=== PATIENT | female | born 1945 | race Two or more races ===

== ENCOUNTER 2020-01-07 01:50 | Outpatient (CLI) | payer MEDICARE, SELFPAY ==
[2020-01-07 18:31] LABS: SARS-CoV-2 RNA PCR Negative
== END 2020-01-07 01:51 | disposition home or self-care (01) ==
LOC: ANHCOVIDDT 01:51
PROVIDERS: PCP Internal Medicine; Visit Provider Internal Medicine Gastroenterology
DX: Z01.812 Encounter for preprocedural laboratory examination (principal); Z20.828 Contact with and (suspected) exposure to other viral communicable diseases
CPT/HCPCS: 87635; C9803; U0003

== ENCOUNTER 2020-01-10 00:37 | Day surgery (SDC) | payer MEDICARE, SELFPAY ==
[2020-01-02 10:13] VITALS: BMI 21.9
[2020-01-10 08:17] VITALS: BP 120/78; PULSE 75; RESP 16; TEMP 36.6; O2SAT 98; BMI 21.3
--- NOTE | 2020-01-10 08:29 | WPDGICN ---
Assessment and Plan Assessment and plan (1) SHAR (iron deficiency anemia): Code(s): D50.9 - Iron deficiency anemia, unspecified Status: Acute Assessment and Plan: Patient with iron deficiency anemia plan is to proceed with EGD because of epigastric pain. She has had a colonoscopy within the last several years. This may need to be repeated if endoscopy is unremarkable. Iron replacement is suggested otherwise. (2) History of partial gastrectomy: Code(s): Z90.3 - Acquired absence of stomach [part of] Status: Acute Assessment and Plan: Patient has a partial gastrectomy because of a history of peptic ulcer disease. His possible because of the gastrectomy that she does not absorb iron very well. This may be the etiology for her iron deficiency. (3) Epigastric abdominal pain: Code(s): R10.13 - Epigastric pain Status: Acute Assessment and Plan: Patient has epigastric pain. This appears to improve with pantoprazole. Suggesting acid dyspeptic symptoms. This will be evaluated at time of endoscopy. GI Consult Note Consult date/time: 01/10/20 08:29 HPI: Brandy Lucio is a 74 year old female Presents for evaluation of iron deficiency anemia. Anemia was identified on routine lab testing. Patient does report some mild epigastric burning that has been present this summer. She denies any obvious bleeding. She states her bowel habits are normal. Patient does have a history of peptic ulcer disease. She had previously had a partial gastrectomy. She has an underlying history of Parkinson's disease. Patient has empirically been placed on pantoprazole 40 mg p.o. daily since November of 2019. Her most recent colonoscopy in 2015 was unremarkable. Family history is noncontributory. Review of Systems Review of Systems: All systems reviewed & are unremarkable except as noted in HPI and below [facility] Family History Family History (Updated 07/07/18 @ 12:21 by DOCTOR UNKNOWN) Other Family history of arthritis Family history of cardiovascular disease Social History Social History Smoking status: Never smoker Smoking end date: 02/09/82 Alcohol intake: never Substance use: never Substance use type: does not use Spiritual care concerns: No Meds Home Medications and Allergies Home Medications Medication Instructions Recorded Confirmed Type azelastine 1 spray INTRANASAL DAILY 01/02/20 01/02/20 History carbidopa-levodopa 1 tablet PO TID 01/02/20 01/02/20 History ferrous sulfate 325 mg PO BID 01/02/20 01/02/20 History fluticasone propionate 1 spray INTRANASAL DAILY 01/02/20 01/02/20 History metoprolol succinate 50 mg PO DAILY 01/02/20 01/02/20 History montelukast 10 mg PO DAILY 01/02/20 01/02/20 History pantoprazole 40 mg PO DAILY 01/02/20 01/02/20 History Allergies Allergy/AdvReac Type Severity Reaction Status Date / Time Penicillins Allergy Intermediate Rash Verified 01/10/20 08:15 Sulfa (Sulfonamide Allergy Intermediate Swelling Verified 01/10/20 08:15 Antibiotics) Vital Signs Vital Signs - 24 hr 01/10/20 08:17 Temperature 97.9 F Pulse Rate 75 Respiratory Rate 16 Blood Pressure 120/78 Pulse Oximetry 98 Exam Narrative: Exam Narrative: Physical exam reveals Vital Signs to be stable. HEENT exam unremarkable. Lungs are clear to auscultation and percussion. Heart is without murmur or extra sounds. Abdominal exam midline scar is noted. Bowel sounds are present soft nontender with no organomegaly. Digital external rectal exam is normal.
[2020-01-10] MEDS: LACTATED RINGERS 1,000 ML 150 ML IV CONT (08:38)
--- NOTE | 2020-01-10 09:07 | WPDANESEPPF ---
Anes - Initial Pre Proc Eval Procedure: Operation Date: 01/10/20 09:30 Proposed Procedures p Esophagogastroduodenoscopy - Javier Calle MD Date/Time: 01/10/20 09:07 Surgeon: Javier Calle MD Pre Op Diagnosis: Iron Deficiency Anemia/ Epigastric Pain Patient Data Age: 74 Gender: F Height: 5 ft 4 in Weight: 56.3 kg Last Vital Signs Temp 97.9 F 01/10/20 08:17 Pulse 75 01/10/20 08:17 Resp 16 01/10/20 08:17 BP 120/78 01/10/20 08:17 Pulse Ox 98 01/10/20 08:17 Allergies Allergy/AdvReac Type Severity Reaction Status Date / Time Penicillins Allergy Intermediate Rash Verified 01/10/20 08:15 Sulfa (Sulfonamide Allergy Intermediate Swelling Verified 01/10/20 08:15 Antibiotics) Home Medications Medication Instructions Recorded Confirmed Type azelastine 1 spray INTRANASAL DAILY 01/02/20 01/02/20 History carbidopa-levodopa 1 tablet PO TID 01/02/20 01/02/20 History ferrous sulfate 325 mg PO BID 01/02/20 01/02/20 History fluticasone propionate 1 spray INTRANASAL DAILY 01/02/20 01/02/20 History metoprolol succinate 50 mg PO DAILY 01/02/20 01/02/20 History montelukast 10 mg PO DAILY 01/02/20 01/02/20 History pantoprazole 40 mg PO DAILY 01/02/20 01/02/20 History Patient hx anesthesia problems: none Family hx anesthesia problems: none PMFSH Past Medical History Medical History (Updated 01/10/20 @ 09:06 by Heraclio Moreno MD) Hypertension SHAR (iron deficiency anemia) Parkinson disease Family History Family History (Updated 07/07/18 @ 12:21 by DOCTOR UNKNOWN) Other Family history of arthritis Family history of cardiovascular disease Social History Social History Smoking status: Never smoker Smoking end date: 02/09/82 Alcohol intake: never Substance use: never Substance use type: does not use Spiritual care concerns: No Anes - Eval Final PreProcedure Day of Procedure 01/10/20 09:07 Patient weight: normal Heart: regular rate and rhythm Lungs: clear to auscultation Airway: Mallampati scale class II Neurological: alert and oriented Last oral intake: >/= 8 hours ASA classification: III Emergent: no Anesthetic plan: proceed Anesthesia type and monitoring: general GIVS and standard monitoring Informed Consent: The patient's anesthetic plan and its attendant risks and benefits were discussed with the patient/family/POA. Questions were solicited and answers provided to the satisfaction of the patient/family/POA.
[2020-01-10 09:28] VITALS: BP 82/39; PULSE 68; RESP 16; O2SAT 98
[2020-01-10 09:38] VITALS: BP 96/46; PULSE 67; RESP 15; O2SAT 99
[2020-01-10 09:48] VITALS: BP 107/51; PULSE 69; RESP 15; O2SAT 100
== END 2020-01-10 09:58 | disposition home or self-care (01) ==
PROVIDERS: PCP Internal Medicine; Visit Provider Internal Medicine Gastroenterology
PROC: 0DJ08ZZ Inspection of Upper Intestinal Tract, Via Natural or Artificial Opening Endoscopic (ICD-10-PCS; CPT 43235; principal; 2020-01-10 09:30)
DX: D50.9 Iron deficiency anemia, unspecified (principal); Z90.3 Acquired absence of stomach [part of]; R10.13 Epigastric pain; K31.84 Gastroparesis; I10 Essential (primary) hypertension; G20 Parkinson's disease
CPT/HCPCS: 43235; J2704; J7120

== ENCOUNTER 2020-06-06 12:14 | Outpatient (RCR) | payer MEDICARE, SELFPAY ==
--- NOTE | 2020-06-06 13:48 | PTOPEVAL ---
PHYSICAL THERAPY EVALUATION/DISCHARGE Thank you for referring Brandy Lucio to [facility] Evaluation this date reveals negative VOR, BPPV, and balance testing. Brandy does appear to have some cervical dysfunction which may have been source of dizziness. Positioning of head and neck with ADLs, IADLs was discussed to see if this helps to prevent return of dizziness. No further follow up is planned at this time. I agree with the above information. Referring Physician Date Admitting Provider: Attending Provider: Lindsay Velazquez, ANP Referring Provider: *PT Outpatient Evaluation Start: 06/06/20 12:40 Freq: Status: Active Protocol: Document 06/06/20 12:40 KHADIJAH (Rec: 06/06/20 13:48 KHADIJAH [id number]) Therapy Assessment Status Assessment Status Assessment Status Evaluation Outpatient Past Medical History Past Medical History Source of Past Medical History Recalled from Previous Visit, Confirmed with Patient/Family Neurological History Hx Parkinson's Disease Yes Cardiovascular History Hx Hypertension Yes Respiratory History Hx Respiratory Disorders No Significant History Gastrointestinal History Hx Gastroesophageal Reflux Disease Yes Hx Ulcer Yes: PARTIAL GASTRECTOMY 2013 Genitourinary History Hx Genitourinary Disorders No Significant History Musculoskeletal History Hx Orthopedic Surgery Yes: L KNEE FX PATELLA-WIRES Hematological History Hx Anemia Yes: SHAR NEWLY DIAGNOSED Endocrine History Hx Endocrine Disorders No Significant History HEENT History Hx Cataracts Yes: BILATERAL SURGERY Hx Sinus Problems Yes: ALLERGIES Integumentary History Hx Skin Disorders No Significant History Reproductive History Hx Post Menopausal Yes Psychosocial History Hx Psychiatric Disorders No Significant History Pain History History of Any Previous or Ongoing No Significant History Instance of Pain Anesthesia History Hx Anesthesia Reactions No Significant History Other History Hx Implanted Device Yes: WIRES L KNEE Hx Other Medical Conditions Yes: ? 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 Past weekend - yawned really big - began to feel dizzy - then became wozzy - di
== END 2020-06-19 13:58 | disposition home or self-care (01) ==
LOC: ANHHIPT 12:14
PROVIDERS: PCP Internal Medicine; Visit Provider Physician Assistant Medical
DX: R42 Dizziness and giddiness (principal)
CPT/HCPCS: 97162

== ENCOUNTER 2023-02-03 07:47 | Observation (INO) | payer MEDICARE, SELFPAY ==
[2023-02-03] VITALS (9 sets, daily range): BP systolic 93–129; BP diastolic 50–83; PULSE 75–89; RESP 12–20; TEMP 36.1–36.3; O2SAT 97–100; BMI 19.3
[2023-02-03 08:09] LABS: Basophils Percent Auto 0.6 % (0.2-1.2); Eosinophils Absolute Auto 0.2 K/mm3 (0-0.3); Eosinophils Percent Auto 2.8 % (0-4.4); Hematocrit 38.1 % (37.0-47.0); Immature Granulocyte Absolute 0.03 K/mm3 (0.00-0.031); Immature Granulocyte Percent A 0.5 % (0-0.5); Lymphocytes Absolute Auto 0.76 K/mm3 (0.9-3.2); Mean Corpuscular HGB Conc 28.9 g/dl (32-36); Mean Corpuscular Hemoglobin 27.1 pg (26-34); Mean Corpuscular Volume 93.8 fl (80-100); Mean Platelet Volume 10.2 fl (7.4-10.4); Monocytes Absolute Auto 0.5 K/mm3 (0.1-0.6); Monocytes Percent Auto 8.4 % (2.6-8.5); Neutrophils Absolute Auto 4.8 K/mm3 (1.3-6.7); Neutrophils Percent Auto 75.7 % (45.5-73.1); Platelet Count Result 299 k/mm3 (150-375); Red Blood Count 4.06 M/mm3 (4.2-5.4); White Blood Count 6.3 K/mm3 (4.5-10.0)
[2023-02-03 08:25] LABS: Alanine Aminotransferase 7 U/L (6-35); Albumin Level 3.8 g/dL (3.5-5.1); Alkaline Phosphatase 69 U/L (38-126); Anion Gap 8 mmol/L (8-16); Aspartate Amino Transferase 23 U/L (14-36); Bilirubin,Total 0.4 mg/dL (0.2-1.3); Blood Urea Nitrogen 23 mg/dL (7-17); Calcium 9.1 mg/dL (8.4-10.2); Carbon Dioxide 26 mmol/L (22-30); Chloride 104 mmol/L (98-107); Estimated CRCL calculation 48 ml/min; Estimated Glomerular Filt Rate > 60; Glucose 107 mg/dL (65-110); Potassium 4.4 mmol/L (3.4-5.0); Sodium 138 mmol/L (137-145)
[2023-02-03 08:26] LABS: Prothrombin Time 13.1 Seconds (11.1-14.7)
[2023-02-03 08:43] LABS: Partial Thromboplastin Time 26.3 SECONDS (22.3-36.8)
--- NOTE | 2023-02-03 09:26 | ED.GIBLEED ---
HPI - GI Bleed General Chief complaint: GI Bleed Stated complaint: rectal bleeding Time Seen by Provider: 02/03/23 09:08 Source: patient and family Mode of arrival: ambulatory Limitations: no limitations History of Present Illness HPI Narrative: Patient presents with rectal bleeding of fresh red bright blood this morning. At least 4 bowel movements. She denies any fever, chills, nausea or vomiting. Last colonoscopy 2015, history of peptic ulcer disease, currently on a baby aspirin once a day. She denies any abdominal pain. History of parkinsonism Related Data Home Medications Medication Instructions Recorded Confirmed Lactobacills gasseri-Bifidobac 1 cap PO .QD 09/23/21 12/08/22 bifidum,longum 1.5 billion cell capsule ([facility]) carbidopa 25 mg-levodopa 100 mg 1 tablet PO QID 09/23/21 12/08/22 tablet (Sinemet) cholecalciferol (vitamin D3) 50 50 mcg PO DAILY 02/19/22 12/08/22 mcg (2,000 unit) capsule cyanocobalamin (vitamin B-12) 1,000 mcg IM .COMPLEX 02/19/22 12/08/22 1,000 mcg/mL injection solution mv,iron,zcy-IP-skcciwl supplement tablet PO .od 05/30/22 12/08/22 comb. no.24 400 mcg tablet Blood Builder BYMOUTH 12/26/22 esomeprazole magnesium 20 mg 20 mg PO .PRN 01/28/23 capsule,delayed release Allergies Allergy/AdvReac Type Severity Reaction Status Date / Time Penicillins Allergy Intermediate Rash Verified 02/03/23 07:59 Sulfa (Sulfonamide Allergy Intermediate Swelling Verified 02/03/23 07:59 Antibiotics) topiramate [From Topamax] Allergy Chest Pain Verified 02/03/23 07:59 doxycycline AdvReac Gastrointestinal Verified 02/03/23 07:59 Upset Review of Systems Review of Systems: All systems reviewed & are unremarkable except as noted in HPI and below PMFSH Past Medical History Medical History Anemia Bezoar phytobezoar 2019 EGD (retained fiber) Chronic pain of left ankle Common bile duct dilatation 14 mm US in ER 11/25/22 Folate deficiency History of frequent headaches Hypertension SHAR (iron deficiency anemia) Left patella fracture Lesion of [place] kidney right kidney septated cyst Migraine Osteoporosis Other chronic pain Parkinson disease Peroneal tendinitis of left lower leg Personal history of peptic ulcer disease Postcalcaneal bursitis of left foot Vitamin B12 deficiency Weight loss Surgical History Surgical History S/P partial gastrectomy Family History Family History Father Depression Family history of cardiovascular disease Renal disease Anxiety Mother Heart disease Grandparent Breast cancer Grandparent Cerebrovascular accident Other Family history of arthritis Social History Social History Smoking status: Former smoker Smoking end date: 02/09/75 Alcohol intake: never Substance use: never Substance use type: does not use Lack of Transportation: No Lack of Food: Never True Current Housing: I Have Housing Concerned About Future Housing: No Difficulty Paying Gas/Electric Bills: No Difficulty Paying for Meds: No Currently Unemployed: No Education: Bachelor's Degree Difficulty w/ Childcare or Family Care: No Living arrangements: with family Gender identity (if verbalized by the patient): Female Spiritual care concerns: No Exam Narrative: General appearance: Well-developed, well-nourished Skin: Normal color Head: Normocephalic, nontraumatic Eyes: Clear conjunctiva ENT: Oropharynx normal, ears normal, nose normal Neck: Supple, nontender Chest and respiratory: Airway patent, no respiratory distress, no accessory muscle use Heart: Regular rate/rhythm Abdomen: Soft, nontender, no organomegaly, quiet bowel sounds, rectal exam showed gross dark red blood, guaiac positive Vascular: N
[2023-02-03] MEDS: SODIUM CHLORIDE 0.9% IV 1,000 ML 999 ML IV CONT (09:57)
[2023-02-03] MEDS: PANTOPRAZOLE SODIUM IV 40 MG VIAL IV PUSH ×2 (09:57→20:34)
[2023-02-03 10:48] LABS: Hematocrit 32.2 % (37.0-47.0); Hemoglobin 9.6 g/dL (12.0-15.0)
--- NOTE | 2023-02-03 11:03 | ADMGEN ---
This patient, Brandy Lucio, was admitted to [facility] Room 305-02. Patient/family oriented to hospital policies and general routines including ID bracelet, bed and alarms, visiting hours, pain management, procedures, bathroom and other care routines, personal items, smoking policy, room service/diet, and visiting hours. Information on how to activate the Rapid Response Team has been discussed. Patient/Family are encouraged to report perceived risks to care and to ask questions if they do not understand what they are told or what they should do.
[2023-02-03] MEDS: SODIUM CHLORIDE 0.9% IV 1,000 ML 125 ML IV CONT ×2 (11:24→19:30)
--- NOTE | 2023-02-03 12:07 | PM.IMHP ---
H&P: HPI History of Present Illness Date/Time: 02/03/23 12:07 Chief Complaint: Bright red blood per rectum Narrative: this is a 77-year-old female with a past medical history of Parkinson's disease, iron deficiency anemia and seasonal allergies at present to the ED on 02/03/2023 due to having episode of bloody stool this morning. Patient states that she was going to the bathroom per usual and noticed that the entire toilet bowl was filled with blood. She denies any rectal pain associated with this. States that there was some loose stool in the bowl as well. She denies any associated dizziness, lightheadedness, shortness of breath, chest pain nausea or vomiting with this. She denies any abdominal pain. She did not have any symptoms nausea, diarrhea or abdominal pain the day prior either. She has no family history of colon cancer. Patient's last colonoscopy was in 2015 and she had an EGD in 2013. Patient does take a daily aspirin but denies any other NSAID use. Patient recently seen in Dr. Calle's office after having a MRI showing nonspecific dilation of the biliary tree. Due to patient's history of anemia he had recommended an EGD and colonoscopy. at ED presentation patient was found to have a hemoglobin and hematocrit 11/38.1 which is higher from previous labs done in December and November of this year. Patient has had no recurrence BRBPR since arrival to hospital. GI consulted from the ED. Patient admitted for further evaluation bloody stool and monitoring of H&H. [facility] Past Medical History Medical History Anemia Bezoar phytobezoar 2019 EGD (retained fiber) Chronic pain of left ankle Common bile duct dilatation 14 mm US in ER 11/25/22 Folate deficiency History of frequent headaches Hypertension SHAR (iron deficiency anemia) Left patella fracture Lesion of [place] kidney right kidney septated cyst Migraine Osteoporosis Other chronic pain Parkinson disease Peroneal tendinitis of left lower leg Personal history of peptic ulcer disease Postcalcaneal bursitis of left foot Vitamin B12 deficiency Weight loss Surgical History Surgical History (Updated 02/03/23 @ 12:16 by Patsy Guadalupe PA-C) H/O left knee surgery S/P partial gastrectomy Family History Family History Father Depression Family history of cardiovascular disease Renal disease Anxiety Mother Heart disease Grandparent Breast cancer Grandparent Cerebrovascular accident Other Family history of arthritis Social History Social History Years smoked: 10 Smoking status: Former smoker Smoking end date: 02/09/75 Alcohol intake: never Substance use: never Substance use type: does not use Do You Feel Safe in your Home?: Yes Lack of Transportation: No Lack of Food: Never True Current Housing: I Have Housing Concerned About Future Housing: No Difficulty Paying Gas/Electric Bills: No Difficulty Paying for Meds: No Currently Unemployed: No Education: Bachelor's Degree Difficulty w/ Childcare or Family Care: No Living arrangements: with family Gender identity (if verbalized by the patient): Female Spiritual care concerns: No Meds Home Medications and Allergies Home Medications Medication Instructions Recorded Confirmed Type carbidopa 25 mg-levodopa 100 mg See Rx Instructions .Route .COMPLEX 09/23/21 02/03/23 History tablet (Sinemet) cholecalciferol (vitamin D3) 50 50 mcg PO DAILY 02/19/22 02/03/23 History mcg (2,000 unit) capsule cyanocobalamin (vitamin B-12) 1,000 mcg IM MONTHLY 02/19/22 02/03/23 History 1,000 mcg/mL injection solution fluticasone propionate 50 1 spray intranasal DAILY #16 grams 09/19/22 02/03/23 Rx mcg/actuation nasal spray,suspension Blood Builder [employer]TH 12/26/22 History esomeprazole magnesium 20
--- NOTE | 2023-02-03 12:22 | WPDGICN ---
Assessment and Plan Assessment and plan (1) Acute GI bleeding: Code(s): K92.2 - Gastrointestinal hemorrhage, unspecified Status: Acute Assessment and Plan: this began early this morning with passage of bright red blood which was mostly liquid. There may been a few clots as well. She was not having any rectal or abdominal pain. She denies having become lightheaded or becoming diaphoretic. (2) Occult blood in stools: Code(s): R19.5 - Other fecal abnormalities Status: Acute Assessment and Plan: She recently was found to have Hemoccult-positive stool and in fact was referred to our office where she was seen by Dr. Calle. the patient was then scheduled to have an EGD and colonoscopy by myself in about 6 weeks. (3) Common bile duct dilatation: Code(s): K83.8 - Other specified diseases of biliary tract Status: Acute Assessment and Plan: Part of the referral to our office last week with because she had had an MRI to investigate biliary dilatation noted on ultrasound. I believe that ultrasound was done for investigation of kidneys. At any rate the MRI did not reveal any common bile duct stones any mass or other lesion the cause dilatation of the biliary tree. Liver function tests were normal. (4) Personal history of peptic ulcer disease: Code(s): Z87.11 - Personal history of peptic ulcer disease Status: Acute Assessment and Plan: because of a prior ulcer she has had a prior partial gastrectomy and Billroth II anastomosis. Plan She will be scheduled for EGD and colonoscopy to be done tomorrow morning. I have discussed the procedures with her including the risks such as bleeding, perforation, or need for surgery; I also discussed with her the bowel prep. GI Consult Note Consult date/time: 02/03/23 12:22 HPI: Brandy Lucio is a 77 year old female Who was admitted today with hematochezia that began early this morning. She had 3 or 4 stools which were all bright red blood virtually filled the toilet bowl. She has not had abdominal pain or rectal pain. She had been referred to our office just last week because of Hemoccult-positive stools and this in the face of chronic iron deficiency anemia. She was scheduled for endoscopy colonoscopy to be done in 2 months. she had not recently seen any blood her stools until it happened this morning. She does have a history of having had a perforated gastric ulcer many years ago which required surgery. About 2 years ago she had endoscopy to investigate anemia and no particular findings were seen. 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 Review of Systems Review of Systems: All systems reviewed & are unremarkable except as noted in HPI and below PMFSH Past Medical History Medical History Anemia Bezoar phytobezoar 2019 EGD (retained fiber) Chronic pain of left ankle Common bile duct dilatation 14 mm US in ER 11/25/22 Folate deficiency History of frequent headaches Hypertension SHAR (iron deficiency anemia) Left patella fracture Lesion of [place] kidney right kidney septated cyst Migraine Osteoporosis Other chronic pain Parkinson disease Peroneal tendinitis of left lower leg Personal history of peptic ulcer disease Postcalcaneal bursitis of left foot Vitamin B12 deficiency Weight loss Surgical History Surgical History H/O left knee surgery S/P partial gastrectomy Family History Family History Father Depression Family history of cardiovascular disease Renal disease Anxiety Mother Heart disease Grandparent Breast cancer Grandparent Cerebrovascular accident Other Family history of arthritis Social Hi
[2023-02-03] MEDS: BISACODYL 5 MG TABLET EC 15 MG PO (12:28)
[2023-02-03] MEDS: CARBIDOPA/LEVODOPA 25/100 MG TABLET 2 TABLET PO ×2 (12:32→17:31)
[2023-02-03] MEDS: ACETAMINOPHEN 325 MG TABLET 650 MG PO (14:24)
[2023-02-03] MEDS: polyethylene glycoL 3350 238 GM BOTTLE PO (17:31)
[2023-02-03 18:33] LABS: Hematocrit 33.9 % (37.0-47.0); Hemoglobin 9.8 g/dL (12.0-15.0)
[2023-02-03 18:55] LABS: Transferrin 275 mg/dL (206-381)
[2023-02-03 19:11] LABS: Iron 40 ug/dL (37-170)
[2023-02-03 19:20] LABS: Percent Iron Saturation 11 % (20-50)
[2023-02-03 19:46] LABS: Ferritin 6.09 ng/mL (11.1-264)
[2023-02-03 19:57] LABS: Folic Acid > 20.0 ng/mL (2.76->20)
[2023-02-03] MEDS: CARBIDOPA/LEVODOPA 25/100 MG TABLET 1 TABLET PO (20:34)
[2023-02-03] MEDS: MONTELUKAST SODIUM 10 MG TABLET PO (20:34)
[2023-02-03] MEDS: ONDANSETRON INJ 4 MG/2 ML VIAL IV PUSH (20:34)
[2023-02-03 22:28] LABS: Hematocrit 28.1 % (37.0-47.0); Hemoglobin 8.3 g/dL (12.0-15.0)
[2023-02-04] VITALS (8 sets, daily range): BP systolic 110–150; BP diastolic 57–79; PULSE 82–95; RESP 16–22; TEMP 36.3–36.6; O2SAT 96–100
[2023-02-04] MEDS: ACETAMINOPHEN 325 MG TABLET 650 MG PO ×2 (02:35→08:51)
[2023-02-04] MEDS: SODIUM CHLORIDE 0.9% IV 1,000 ML 125 ML IV CONT ×2 (02:37→08:57)
[2023-02-04] MEDS: CARBIDOPA/LEVODOPA 25/100 MG TABLET 2 TABLET PO ×2 (06:22→16:25)
[2023-02-04 06:34] LABS: Hematocrit 32.3 % (37.0-47.0); Hemoglobin 9.5 g/dL (12.0-15.0); Mean Corpuscular HGB Conc 29.4 g/dl (32-36); Mean Corpuscular Hemoglobin 27.5 pg (26-34); Mean Corpuscular Volume 93.6 fl (80-100); Mean Platelet Volume 10.3 fl (7.4-10.4); Platelet Count Result 286 k/mm3 (150-375); Red Blood Count 3.45 M/mm3 (4.2-5.4); White Blood Count 4.4 K/mm3 (4.5-10.0)
[2023-02-04 06:53] LABS: Alanine Aminotransferase 6 U/L (6-35); Albumin Level 3.1 g/dL (3.5-5.1); Alkaline Phosphatase 54 U/L (38-126); Anion Gap 4 mmol/L (8-16); Aspartate Amino Transferase 16 U/L (14-36); Bilirubin,Total 0.4 mg/dL (0.2-1.3); Blood Urea Nitrogen 10 mg/dL (7-17); Calcium 8.5 mg/dL (8.4-10.2); Carbon Dioxide 24 mmol/L (22-30); Chloride 111 mmol/L (98-107); Estimated CRCL calculation 56 ml/min; Estimated Glomerular Filt Rate > 60; Glucose 92 mg/dL (65-110); Potassium 3.8 mmol/L (3.4-5.0); Sodium 139 mmol/L (137-145)
[2023-02-04] MEDS: ONDANSETRON INJ 4 MG/2 ML VIAL IV PUSH (08:51)
[2023-02-04] MEDS: PANTOPRAZOLE SODIUM IV 40 MG VIAL IV PUSH ×2 (08:51→20:10)
[2023-02-04] MEDS: FLUTICASONE PROPIONATE 0.05% NA SPR 16 GM BTL (*BKC) 1 SPRAY NASAL (08:52)
[2023-02-04] MEDS: AZELASTINE HCL NASAL 0.1% 137 MCG/SPR 30 ML BTL 1 SPRAY NASAL (08:53)
--- NOTE | 2023-02-04 12:55 | SUR.PREOP ---
Patient c/o nausea. Had Zofran [address] Moreno. Orders received for IV Benadryl 12.5 mg x 1
[2023-02-04] MEDS: LACTATED RINGERS 1,000 ML 150 ML IV CONT (12:58)
--- NOTE | 2023-02-04 13:02 | WPDANESEPPF ---
Anes - Initial Pre Proc Eval Procedure: Operation Date: 02/04/23 16:00 Proposed Procedures p Esophagogastroduodenoscopy & Colonoscopy - Norman Champagne MD Date/Time: 02/04/23 13:02 Surgeon: Bora Quarles MD Pre Op Diagnosis: GI Bleed Patient Data Age: 77 Gender: F Height: 1.63 m Weight: 51.1 kg Last Vital Signs Temp 97.4 F L 02/04/23 12:49 Pulse 92 02/04/23 12:49 Resp 18 02/04/23 12:49 BP 137/76 02/04/23 12:49 Pulse Ox 98 02/04/23 12:49 O2 Del Method Room Air 02/04/23 12:49 Allergies Allergy/AdvReac Type Severity Reaction Status Date / Time Penicillins Allergy Intermediate Rash Verified 02/04/23 12:47 Sulfa (Sulfonamide Allergy Intermediate Swelling Verified 02/04/23 12:47 Antibiotics) topiramate [From Topamax] Allergy Chest Pain Verified 02/04/23 12:47 doxycycline AdvReac Gastrointestinal Verified 02/04/23 12:47 Upset Home Medications Medication Instructions Recorded Confirmed Type carbidopa 25 mg-levodopa 100 mg See Rx Instructions .Route .COMPLEX 09/23/21 02/03/23 History tablet (Sinemet) cholecalciferol (vitamin D3) 50 50 mcg PO DAILY 02/19/22 02/03/23 History mcg (2,000 unit) capsule cyanocobalamin (vitamin B-12) 1,000 mcg IM MONTHLY 02/19/22 02/03/23 History 1,000 mcg/mL injection solution fluticasone propionate 50 1 spray intranasal DAILY #16 grams 09/19/22 02/03/23 Rx mcg/actuation nasal spray,suspension Blood Builder [employer]TH 12/26/22 History esomeprazole magnesium 20 mg 20 mg PO .PRN PRN Indigestion 01/28/23 02/03/23 History capsule,delayed release azelastine 137 mcg (0.1 %) nasal 1 spray intranasal DAILY 02/03/23 02/03/23 History spray aerosol montelukast 10 mg tablet 10 mg PO HS 02/03/23 02/03/23 History Laboratory Tests 02/03/23 02/03/23 02/04/23 18:27 22:21 06:02 WBC 4.4 L K/mm3 (4.5-10.0) RBC 3.45 L M/mm3 (4.2-5.4) Hgb 9.8 L g/dL 8.3 L g/dL 9.5 L g/dL (12.0-15.0) (12.0-15.0) (12.0-15.0) Hct 33.9 L % 28.1 L % 32.3 L % (37.0-47.0) (37.0-47.0) (37.0-47.0) MCV 93.6 fl (80-100) MCH 27.5 pg (26-34) MCHC 29.4 L g/dl (32-36) RDW 16.0 H % (11.5-14.5) Plt Count 286 k/mm3 (150-375) MPV 10.3 fl (7.4-10.4) Sodium 139 mmol/L (137-145) Potassium 3.8 mmol/L (3.4-5.0) Chloride 111 H mmol/L (98-107) Carbon Dioxide 24 mmol/L (22-30) Anion Gap 4 L mmol/L (8-16) BUN 10 D mg/dL (7-17) Creatinine 0.60 L mg/dL (0.7-1.0) Estim Creat Clear Calc 56 ml/min Estimated GFR > 60 (59 - ) Glucose 92 mg/dL (65-110) Calcium 8.5 mg/dL (8.4-10.2) Iron 40 ug/dL (37-170) TIBC 351 ug/dL (261-462) % Saturation 11 L % (20-50) Transferrin 275 mg/dL (206-381) Ferritin 6.09 L ng/mL (11.1-264) Total Bilirubin 0.4 mg/dL (0.2-1.3) AST 16 U/L (14-36) ALT 6 U/L (6-35) Alkaline Phosphatase 54 U/L (38-126) Total Protein 5.0 L g/dL (6.3-8.2) Albumin 3.1 L g/dL (3.5-5.1) Vitamin B12 548.0 pg/mL (239-931) Folate > 20.0 H ng/mL (2.76->20) TSH (Reflex) 2.500 uIU/mL (0.465-4.68) Patient hx anesthesia problems: post op nausea/vomiting Family hx anesthesia problems: none Results Review: All pre-operative results and documents have been reviewed as part of the pre-operative evaluation. [facility] Past Medical History Medical History Anemia Bezoar phytobezoar 2019 EGD (retained fiber) Chronic pain of left ankle Common bile duct dilatation 14 mm US in ER 11/25/22 Folate deficiency History of frequent headaches Hypertension SHAR (iron deficiency anemia) Left patella fracture Lesion of [place] kidney r
[2023-02-04] MEDS: diphenhydrAMINE HCl INJ 50 MG/ML VIAL 12.5 MG IV PUSH (13:04)
--- NOTE | 2023-02-04 13:53 | SUR.OPER ---
EGD END TIME: 1346 COLON START TIME: 1351
--- NOTE | 2023-02-04 14:55 | PCCCNOTE ---
On 02/04/23, the student, [Noy Ortiz], provided care and completed [facility] documentation on this patient. I have reviewed the student's documentation and agree with the findings.
--- NOTE | 2023-02-04 15:30 | PM.IMPN ---
Progress Note: A&P Assessment and Plan (1) Acute GI bleeding: Code(s): K92.2 - Gastrointestinal hemorrhage, unspecified Status: Acute Assessment and Plan: patient presented to the ED due to BRBPR. exam in the ED consistent with gross rectal bleeding and guaiac-positive stool. GI consulted-planned EGD and colonoscopy today Patient started on 40 mg Protonix b.i.d. IV fluids continue-Decrease to 75 ml/hr Monitor H&H. which was 11/38.1 in the ED. This morning is 9.5/32.3 (2) Occult blood in stools: Code(s): R19.5 - Other fecal abnormalities Status: Acute Assessment and Plan: See #2. (3) SHAR (iron deficiency anemia): Code(s): D50.9 - Iron deficiency anemia, unspecified Status: Acute Assessment and Plan: Patient with history of iron deficiency anemia. Patient takes a daily iron supplement. Back in November she was found to have an iron of 12 and a % saturation of 3 and a ferritin of 3. Will repeat anemia labs. (4) Parkinson disease: Code(s): G20 - Parkinson's disease Status: Acute Assessment and Plan: Continue home medication. Subjective Date/time seen: 02/04/23 1045 Interval history: 02/03: this is a 77-year-old female with a past medical history of Parkinson's disease, iron deficiency anemia and seasonal allergies at present to the ED on 02/03/2023 due to having episode of bloody stool this morning.? Patient states that she was going to the bathroom per usual and noticed that the entire toilet bowl was filled with blood.? She denies any rectal pain associated with this.? States that there was some loose stool in the bowl as well.? She denies any associated dizziness, lightheadedness, shortness of breath, chest pain nausea or vomiting with this.? She denies any abdominal pain.? She did not have any symptoms nausea, diarrhea or abdominal pain the day prior either.? She has no family history of colon cancer.? Patient's last colonoscopy was in 2015 and she had an EGD in 2013. ? Patient does take a daily aspirin but denies any other NSAID use. Patient recently seen in Dr. Calle's office after having a MRI showing nonspecific dilation of the biliary tree.? Due to patient's history of anemia he had recommended an EGD and colonoscopy.? at ED presentation patient was found to have a hemoglobin and hematocrit 11/38.1 which is higher from previous labs done in December and November of this year.? Patient has had no recurrence BRBPR since arrival to hospital.? GI consulted from the ED. Patient admitted for further evaluation bloody stool and monitoring of H&H. 02/04: This morning on rounding patient awaiting EGD and colonoscopy. c/o NUNEZ and nausea for which she received tylenol and zofran without improvement. Pt states she has a h/o migraine HAs but hasn't had one for a few years. States she normally takes Excedrin migraine with good results. H/H this morning 9.5/32.3. Some of this drop may be due to dilution with IV fluids. Pt states she had bright red rectal bleeding with the prep yesterday but none since then. Denies any abdominal pain. Will repeat labwork in the morning to make sure it isn't dropping any further. Review of Systems Review of Systems: All systems reviewed & are unremarkable except as noted in HPI and below Exam Narrative: Patient is a/o x 4 and appears in no acute distress. Visiting with her . Const: General: comfortable and no acute distress HENMT: Face/Nose/Sinus: Normal nares present Mouth: Yes moist mucous membranes Eyes: General: appearance normal, both eyes and all related structures Sclera: sclerae normal Pupils: Equal, round and reactive pupils present EOM: EOMs intact bilaterally Neck: Neck: supple and no JVD Resp: Effort & Inspection: normal respiratory effort Auscultation: clear to auscultation bilaterally Cardio: Rate: regular rate Rhythm: regular rhythm Other: No rub, g
[2023-02-04] MEDS: HYDROcodone/acetaminophen (*CRX) 5-325 MG TABLET 1 TAB PO (15:46)
[2023-02-04] MEDS: MONTELUKAST SODIUM 10 MG TABLET PO (20:10)
[2023-02-04] MEDS: CARBIDOPA/LEVODOPA 25/100 MG TABLET 1 TABLET PO (20:10)
[2023-02-04] MEDS: SODIUM CHLORIDE 0.9% IV 1,000 ML 75 ML IV CONT (20:15)
[2023-02-05] VITALS: BP 123/74; PULSE 76; RESP 16; TEMP 36.3; O2SAT 98
[2023-02-05 04:00] VITALS: BP 148/83; PULSE 77; RESP 16; TEMP 36; O2SAT 98
[2023-02-05] MEDS: CARBIDOPA/LEVODOPA 25/100 MG TABLET 2 TABLET PO ×2 (06:46→11:20)
[2023-02-05] MEDS: SODIUM CHLORIDE 0.9% IV 1,000 ML 75 ML IV CONT (06:48)
[2023-02-05 08:00] VITALS: BP 140/74; PULSE 77; RESP 18; TEMP 36.5; O2SAT 99
[2023-02-05 09:11] LABS: Basophils Percent Auto 0.4 % (0.2-1.2); Eosinophils Percent Auto 0.4 % (0-4.4); Hematocrit 29.1 % (37.0-47.0); Hemoglobin 8.6 g/dL (12.0-15.0); Immature Granulocyte Absolute 0.03 K/mm3 (0.00-0.031); Immature Granulocyte Percent A 0.5 % (0-0.5); Lymphocytes Absolute Auto 0.56 K/mm3 (0.9-3.2); Lymphocytes Percent Auto 10.2 % (18.3-44.2); Mean Corpuscular HGB Conc 29.6 g/dl (32-36); Mean Corpuscular Hemoglobin 27.6 pg (26-34); Mean Corpuscular Volume 93.3 fl (80-100); Monocytes Absolute Auto 0.4 K/mm3 (0.1-0.6); Monocytes Percent Auto 7.5 % (2.6-8.5); Neutrophils Absolute Auto 4.4 K/mm3 (1.3-6.7); Platelet Count Result 237 k/mm3 (150-375); Red Blood Count 3.12 M/mm3 (4.2-5.4); Red Cell Distribution Width 16.1 % (11.5-14.5); White Blood Count 5.5 K/mm3 (4.5-10.0)
[2023-02-05 09:25] LABS: Anion Gap 3 mmol/L (8-16); Blood Urea Nitrogen 6 mg/dL (7-17); Calcium 8.8 mg/dL (8.4-10.2); Carbon Dioxide 24 mmol/L (22-30); Chloride 111 mmol/L (98-107); Estimated CRCL calculation 56 ml/min; Estimated Glomerular Filt Rate > 60; Glucose 93 mg/dL (65-110); Potassium 3.7 mmol/L (3.4-5.0); Sodium 138 mmol/L (137-145)
[2023-02-05] MEDS: PANTOPRAZOLE SODIUM IV 40 MG VIAL IV PUSH (09:29)
[2023-02-05 09:30] VITALS: O2SAT 97
[2023-02-05] MEDS: CHOLECALCIFEROL 1,000 UNITS TABLET 2000 UNITS PO (09:30)
--- NOTE | 2023-02-05 11:04 | PCNFU ---
Nutrition Follow-Up Complete: Inadequate energy intake related to diet order as evidenced by clear liquid status. Goal:Diet advanced PO intake 75% of meals Pt is meeting goal. Continue with same goal Pt current nutrition is Regular, Ensure Enlive BID. Nutrition recommendation: continue with current plan of care Last recorded weight is 51.1 kg. Bowel Motility: +BM 02/04 Labs Reviewed: Hgb:9.5, HCT:32.3, Cr:0.6 Meds Noted: protonix, zofran Skin: WNL Additional Notes: Pt diet upgraded to regular, intake good and tolerating well per pt. Possible discharge today. Monitor intake, wt, labs. Follow up in 7 days.
--- NOTE | 2023-02-05 11:38 | WPDANESPN ---
Anes - Prog Note Post-Op Date/Time: 02/05/23 11:38 Cardiovascular status: normal Respiratory status: normal Airway patency: baseline Mental status: baseline Post-Op hydration status: normal Vital Signs: Last Vital Signs Temp 97.7 F 02/05/23 08:00 Pulse 77 02/05/23 08:00 Resp 18 02/05/23 08:00 BP 140/74 02/05/23 08:00 Pulse Ox 99 02/05/23 08:00 O2 Del Method Room Air 02/04/23 20:00 Pain Score (VAS): 0/10 I/O: Intake & Output 02/04/23 02/05/23 02/05/23 23:59 07:59 15:59 Intake Total 1518 1240 480 Output Total 600 Balance 1518 640 480 Laboratory Tests 02/05/23 09:02 02/05/23 09:02 02/05/23 09:02 WBC 5.5 RBC 3.12 L Hgb 8.6 L Hct 29.1 L MCV 93.3 MCH 27.6 MCHC 29.6 L RDW 16.1 H Plt Count 237 MPV 10.0 Immature Gran % (Auto) 0.5 Neut % (Auto) 81.0 H Lymph % (Auto) 10.2 L [place] % (Auto) 7.5 Eos % (Auto) 0.4 Baso % (Auto) 0.4 Lymph # (Auto) 0.56 L [place] # (Auto) 0.4 Eos # (Auto) 0.0 Baso # (Auto) 0.0 Abs Immat Gran (auto) 0.03 Absolute Neuts (auto) 4.4 Absolute Nucleated RBC 0.0 Nucleated RBC % 0.0 Sodium 138 Potassium 3.7 Chloride 111 H Carbon Dioxide 24 Anion Gap 3 L BUN 6 L Creatinine 0.60 L Estim Creat Clear Calc 56 Estimated GFR > 60 Glucose 93 Calcium 8.8 Post-procedural complaints: none Patient Feedback: Patient satisfied with anesthetic care.
[2023-02-05 12:00] VITALS: BP 113/61; PULSE 75; RESP 16; TEMP 36.6; O2SAT 100
--- NOTE | 2023-02-05 13:05 | PCCCNOTE ---
On 02/05/23, the student, [Noy Ortiz], provided care and completed [facility] documentation on this patient. I have reviewed the student's documentation and agree with the findings.
--- NOTE | 2023-02-05 14:41 | PM.DS ---
DS: Admitting Diagnosis Discharge Date 02/05/2023 Admitting Diagnosis GI bleed DS: Discharge Diagnosis Discharge Diagnosis Plan No further rectal bleeding noted since admission. H/H stable. EGD and colonoscopy completed. DS: Summary Hospital Course Reason for hospitalization: Rectal bleeding Hospital Course: 02/03:? this is a 77-year-old female with a past medical history of Parkinson's disease, iron deficiency anemia and seasonal allergies at present to the ED on 02/03/2023 due to having episode of bloody stool this morning.? Patient states that she was going to the bathroom per usual and noticed that the entire toilet bowl was filled with blood.? She denies any rectal pain associated with this.? States that there was some loose stool in the bowl as well.? She denies any associated dizziness, lightheadedness, shortness of breath, chest pain nausea or vomiting with this.? She denies any abdominal pain.? She did not have any symptoms nausea, diarrhea or abdominal pain the day prior either.? She has no family history of colon cancer.? Patient's last colonoscopy was in 2015 and she had an EGD in 2013. ? Patient does take a daily aspirin but denies any other NSAID use. Patient recently seen in Dr. Calle's office after having a MRI showing nonspecific dilation of the biliary tree.? Due to patient's history of anemia he had recommended an EGD and colonoscopy.? at ED presentation patient was found to have a hemoglobin and hematocrit 11/38.1 which is higher from previous labs done in December and November of this year.? Patient has had no recurrence BRBPR since arrival to hospital.? GI consulted from the ED. Patient admitted for further evaluation bloody stool and monitoring of H&H. 02/04:? This morning on rounding patient awaiting EGD and colonoscopy.? c/o NUNEZ and nausea for which she received tylenol and zofran without improvement.? Pt states she has a h/o migraine HAs but hasn't had one for a few years.? States she normally takes Excedrin migraine with good results.? H/H this morning 9.5/32.3.? Some of this drop may be due to dilution with IV fluids.? Pt states she had bright red rectal bleeding with the prep yesterday but none since then.? Denies any abdominal pain. Will repeat labwork in the morning to make sure it isn't dropping any further.? 02/05: EGD showed a moderate amount of phytobezoar in the body of the stomach. Moderate localized gastritis. Previous gastric surgery. Will continue protonix and GI soft diet. A few medium-sized internal hemorrhoids were seen in the rectum. Multiple diverticula were present in the sigmoid colon. The diverticula produced stigmata bleeding. The patient has had no further noted rectal bleeding today. Denies any abdominal pain, nausea, vomiting. Is tolerating a GI soft diet. Feels like she is back at her baseline. Will plan to discharge home to follow-up with her primary care provider for repeat CBC and follow-up with gastroenterology as scheduled. Status at Discharge Functional status at discharge: independent ambulation Overall status at discharge: patient is back to baseline Time Spent with Patient Time attestation: Total time spent providing and/or coordinating discharge services: Time spent: Less than 30 minutes Exam Narrative: Patient is alert and oriented x4 and appears in no acute distress. Visiting with her and pleasant affect. Requesting to go home today. Const: General: comfortable and no acute distress HENMT: Face/Nose/Sinus: Normal nares present Mouth: Yes moist mucous membranes Eyes: General: appearance normal, both eyes and all related structures Sclera: sclerae normal Pupils: Equal, round and reactive pupils present EOM: EOMs intact bilaterally Neck: Neck: supple and no JVD Resp: Effort & Inspection: normal respiratory effort Auscultation: clear to auscultation bilaterally Other: Patient appears in no respiratory distress. Able to speak in complete sentences withou
== END 2023-02-05 16:00 | disposition home or self-care (01) ==
LOC: ANHED 09:54 → ANH3MEDSUR 10:32
PROVIDERS: Internal Medicine Critical Care Medicine; Internal Medicine Gastroenterology; Nurse Practitioner Family; Admitting Provider Internal Medicine; Emergency Provider Emergency Medicine; PCP Physician Assistant Medical; Visit Provider Internal Medicine
PROC: 0DJ08ZZ Inspection of Upper Intestinal Tract, Via Natural or Artificial Opening Endoscopic (ICD-10-PCS; CPT 43235; principal; 2023-02-04 16:00)
DX: K31.84 Gastroparesis (principal); K29.70 Gastritis, unspecified, without bleeding; K64.8 Other hemorrhoids; K31.89 Other diseases of stomach and duodenum; K57.30 Diverticulosis of large intestine without perforation or abscess without bleeding; Z93.4 Other artificial openings of gastrointestinal tract status; R19.5 Other fecal abnormalities; K83.8 Other specified diseases of biliary tract; Z87.11 Personal history of peptic ulcer disease; G20.C Parkinsonism, unspecified; D64.9 Anemia, unspecified; I10 Essential (primary) hypertension; D50.9 Iron deficiency anemia, unspecified; Z90.3 Acquired absence of stomach [part of]; E53.8 Deficiency of other specified B group vitamins; K30 Functional dyspepsia; G43.909 Migraine, unspecified, not intractable, without status migrainosus; R63.4 Abnormal weight loss; Z68.1 Body mass index [BMI] 19.9 or less, adult; J30.2 Other seasonal allergic rhinitis; M81.0 Age-related osteoporosis without current pathological fracture; Z87.891 Personal history of nicotine dependence; Z79.82 Long term (current) use of aspirin; Z79.899 Other long term (current) drug therapy
CPT/HCPCS: 43235; 45378; 36415; 80048; 80053; 82607; 82728; 82746; 83540; 83550; 84443; 84466; 85014; 85018; 85025; 85027; 85610; 85730; 86850; 86900; 86901; 87081; 96361; 96374; 96375; 96376; 99285; A9270; C9113; G0378; J1200; J2405; J2704; J7030; J7120